=== PATIENT | male | born 1955 | race African-American/Black ===

== ENCOUNTER 2017-12-24 11:57 | Inpatient (IN) ==
[2017-12-25] MEDS ORDERED: DEXTROSE 50% 25 GM/50 ML VIAL IV PRN (10:10)
[2017-12-25] MEDS ORDERED: GLUCAGON 1 MG VIAL IM PRN (10:10)
[2017-12-25] MEDS ORDERED: MECLIZINE 25 MG TABLET PO PRN (10:18)
[2017-12-25] MEDS ORDERED: SODIUM CHLORIDE 0.9% 1,000 ML IV SCH (10:30)
[2017-12-25] MEDS ORDERED: SERTRALINE 100 MG TABLET PO SCH (21:00)
[2017-12-25] MEDS ORDERED: RANITIDINE 150 MG TABLET PO SCH (21:00)
[2017-12-25] MEDS ORDERED: NON-FORMULARY MEDICATION (Clonazepam [Clonazepam] 1 MG) PO SCH (21:00)
[2017-12-25] MEDS ORDERED: CHLORHEXIDINE 0.12% ORAL RINSE 60 ML BOTTLE SWISH/SPIT SCH (21:00)
[2017-12-25] MEDS ORDERED: QUETIAPINE FUMARATE 100 MG PO SCH (21:00)
[2017-12-26] MEDS ORDERED: ASPIRIN EC 325 MG TABLET PO SCH (09:00)
[2017-12-26] MEDS ORDERED: ATORVASTATIN 10 MG TABLET PO SCH (09:00)
[2017-12-26] MEDS ORDERED: GABAPENTIN 300 MG CAPSULE PO SCH (09:00)
[2017-12-26] MEDS ORDERED: DONEPEZIL 10 MG TABLET PO SCH (09:00)
[2017-12-29 10:52] LABS: Basophils % 0.4 % (0.0-0.8); Eosinophils # 0.2 10*3/uL (0.0-0.87); Eosinophils % 3.7 % (0.00-10.9); Hematocrit 36.5 VOL% (42.0-52.0); Hemoglobin 12.2 GM/DL (14.0-18.0); Immature Granulocytes % 0.4 %; Immature Granulocytes Absolute 0.02 #; Lymphocytes # 1.3 10*3/uL (1.4-4.0); Lymphocytes % 24.8 % (21.2-54.2); Mean Corpuscular HGB Conc 33.4 GM/DL (32-36); Mean Corpuscular Hemoglobin 27 PG (27-34); Mean Corpuscular Volume 81.3 FL (87-102); Mean Platelet Volume 10.4 FL (9.6-12.0); Monocytes # 0.4 10*3/uL (0.11-0.8); Monocytes % 8.4 % (1.7-12.7); Neutrophils # 3.2 10*3/uL (1.4-7.4); Neutrophils % 62.3 % (38.7-73.9); Platelet Count 264 T/CUMM (130-400); Red Blood Count 4.49 MC/CUMM (3.8-5.5); Red Cell Distribution Width 14.9 % (9.3-17.3); White Blood Count 5.1 T/CUMM (4-12)
[2017-12-29 11:12] LABS: ABG Base Excess 0.1 MMOL/L (-2.5-2.5); ABG HCO3 24.5 MMOL/L (20-26); ABG Oxygen Saturation 97.3 % (95-100); ABG PCO2 35.8 MM HG (35-48); ABG PH 7.433 (7.35-7.45); ABG PO2 87.6 MM HG (80-95); ABG TCO2 21.1 MMOL/L (23-27); Pt O2 Delivery Device Room Air
[2017-12-29 11:52] LABS: Albumin 3.7 G/DL (3.4-5.0); Bilirubin,Total 0.5 MG/DL (0.2-1.0); Osmolality,Calculated 281.7 MOS/KG (273-304); Potassium 4.4 MMOL/L (3.5-5.1); Total Protein 7.8 G/DL (6.4-8.3)
[2017-12-29] MEDS: CHLORHEXIDINE 0.12% ORAL RINSE 60 ML BOTTLE SWISH/SPIT SCH ×2 (14:57→20:09)
[2017-12-29] MEDS ORDERED: CHLORHEXIDINE 4% SOLN 118 ML BOTTLE TOP SCH (15:00)
[2017-12-29] MEDS: CHLORHEXIDINE 4% SOLN 118 ML BOTTLE TOP SCH ×2 (15:00→20:08)
[2017-12-29] MEDS ORDERED: MECLIZINE 25 MG TABLET PO PRN (15:00)
[2017-12-29] MEDS ORDERED: DEXTROSE 50% 25 GM/50 ML VIAL IV PRN (15:00)
[2017-12-29] MEDS ORDERED: GLUCAGON 1 MG VIAL IM PRN (15:00)
[2017-12-29] MEDS ORDERED: SODIUM CHLORIDE 0.9% 1,000 ML IV SCH (15:00)
[2017-12-29] MEDS: QUEtiapine 100 MG TABLET PO SCH (20:08)
[2017-12-29] MEDS ORDERED: clonazePAM 0.5 MG TABLET PO SCH (21:00)
[2017-12-29] MEDS ORDERED: SERTRALINE 100 MG TABLET PO SCH (21:00)
[2017-12-29] MEDS ORDERED: FAMOTIDINE 20 MG TABLET PO SCH (21:00)
[2017-12-30] MEDS ORDERED: LORazepam 1 MG TABLET PO ONE (05:00)
[2017-12-30] MEDS ORDERED: CEFUROXIME INJ 1,500 MG in SYRINGE 1 EACH IV ONE (05:00)
[2017-12-30] MEDS ORDERED: VANCOMYCIN 1,000 MG VIAL ONE (05:25)
[2017-12-30] MEDS ORDERED: PAPAVERINE 60 MG/2 ML VIAL ONE (05:25)
[2017-12-30] MEDS ORDERED: ePHEDrine 50 MG/ML AMP ONE (05:49)
[2017-12-30] MEDS ORDERED: HEPARIN/NACL 0.9% 2 UNITS/ML 500 ML IV ONE (05:49)
[2017-12-30] MEDS ORDERED: SUFentanil 250 MCG/5 ML AMP ONE (05:49)
[2017-12-30] MEDS ORDERED: MIDAZOLAM 10 MG/2 ML VIAL ONE (05:49)
[2017-12-30] MEDS ORDERED: SODIUM CHLORIDE 0.9% 250 ML IV ONE ×2 (05:50→05:51)
[2017-12-30] MEDS ORDERED: PHENYLEPHRINE DRIP 20 MG/250 ML PREMIX IV ONE (05:50)
[2017-12-30] MEDS ORDERED: SODIUM CHLORIDE 0.9% 1,000 ML IV ONE (05:50)
[2017-12-30] MEDS ORDERED: NITROGLYCERIN DRIP 50 MG/250 ML BOTTLE IV ONE (05:50)
[2017-12-30] MEDS ORDERED: SODIUM CHLORIDE 0.9% 100 ML IV ONE (05:50)
[2017-12-30] MEDS ORDERED: LACTATED RINGERS 1,000 ML IV ONE (05:50)
[2017-12-30] MEDS ORDERED: TRANEXAMIC ACID 1,000 MG/10 ML VIAL IV ONE (05:50)
[2017-12-30] MEDS ORDERED: VECURONIUM 10 MG VIAL IV ONE (05:50)
[2017-12-30] MEDS ORDERED: PHENYLEPHRINE 50 MG/5 ML VIAL ONE (05:51)
[2017-12-30] MEDS: FAMOTIDINE 20 MG TABLET PO SCH ×2 (06:26→10:02)
[2017-12-30 07:25] LABS: ABG Base Excess -2.3 MMOL/L (-2.5-2.5); ABG HCO3 22.5 MMOL/L (20-26); ABG PCO2 38.1 MM HG (35-48); ABG PH 7.379 (7.35-7.45); ABG TCO2 20.2 MMOL/L (23-27); Glucose Heart Surgery 144 MG/DL (74-106); Hematocrit Heart Surgery 33.5 PERCENT (42-52); Hemoglobin Heart Surgery 10.8 G/DL (14.0-18.0); Ionized Calcium Arterial 1.16 MMOL/L (1.21-1.46); PCO2 Patient Temp Arterial 38.1 MMHG; PH Patient Temp Arterial 7.379; Patient Temperature 37 CELCIUS; Potassium Heart/CVR 4.3 MMOL/L (3.5-5.1); Sodium Heart/CVR 141 MMOL/L (135-145)
[2017-12-30] MEDS ORDERED: POTASSIUM CHLORIDE RIDER 100 ML IV ONE (07:38)
[2017-12-30] MEDS ORDERED: PHENYLEPHRINE DRIP 40 MG/250 ML PREMIX IV ONE (07:38)
[2017-12-30] MEDS ORDERED: NITROPRUSSIDE 50 MG/2 ML VIAL ONE (07:38)
[2017-12-30] MEDS ORDERED: ALBUMIN 5% 12.5 GM/250 ML VIAL IV ONE (07:38)
[2017-12-30 08:04] LABS: Apearance,Urine CLEAR (Clear); Bilirubin,Urine Negative (Negative); Blood, Urine Negative (Negative); Glucose,Urine (UA) Negative (Negative); Ketones,Urine Negative (Negative); Nitrite,Urine Negative (Negative); Protein,Urine Negative; RBC,Urine <1 /HPF (0-4); Urine Color Yellow (Yellow); Urine Specific Gravity 1.011 (1.001-1.035); Urine Urobilinogen < 2.0 EU/DL (0.2-1.0)
[2017-12-30] MEDS ORDERED: CALCIUM CHLORIDE 1,000 MG/10 ML SYRINGE IV ONE (08:33)
[2017-12-30 09:00] LABS: Hematocrit Heart Surgery 21.5 PERCENT (42-52); Hemoglobin Heart Surgery 6.9 G/DL (14.0-18.0); PCO2 Patient Temp Venous 34.1 MM HG; PH Patient Temp Venous 7.438; PO2 Patient Temp Venous 41.9 MM HG; Potassium Heart/CVR 4.9 MMOL/L (3.5-5.1); VBG Base Excess -0.6 MEQ/L (0-4); VBG HCO3 23.8 MEQ/L (24-28); VBG Oxygen Saturation 86.4 %; VBG PCO2 39.4 MMHG (41-51); VBG PH 7.395; VBG PO2 51.4 MMHG (17-40)
[2017-12-30] MEDS ORDERED: ATORVASTATIN 10 MG TABLET PO SCH (09:00)
[2017-12-30] MEDS ORDERED: ASPIRIN EC 325 MG TABLET PO SCH (09:00)
[2017-12-30] MEDS ORDERED: GABAPENTIN 300 MG CAPSULE PO SCH (09:00)
[2017-12-30] MEDS ORDERED: DONEPEZIL 10 MG TABLET PO SCH (09:00)
[2017-12-30 09:32] LABS: Hematocrit Heart Surgery 22.5 PERCENT (42-52); Hemoglobin Heart Surgery 7.2 G/DL (14.0-18.0); PCO2 Patient Temp Venous 33.9 MM HG; PH Patient Temp Venous 7.446; PO2 Patient Temp Venous 42.5 MM HG; Potassium Heart/CVR 5.1 MMOL/L (3.5-5.1); VBG Base Excess -0.5 MEQ/L (0-4); VBG HCO3 23.8 MEQ/L (24-28); VBG Oxygen Saturation 80.5 %; VBG PCO2 33.9 MMHG (41-51); VBG PH 7.446; VBG PO2 42.5 MMHG (17-40)
[2017-12-30] MEDS: CHLORHEXIDINE 4% SOLN 118 ML BOTTLE TOP SCH (10:01)
[2017-12-30] MEDS: CHLORHEXIDINE 0.12% ORAL RINSE 60 ML BOTTLE SWISH/SPIT SCH ×2 (10:02→20:30)
[2017-12-30] MEDS: QUEtiapine 100 MG TABLET PO SCH (10:03)
[2017-12-30 10:05] LABS: ABG Base Excess -1.3 MMOL/L (-2.5-2.5); ABG HCO3 23.3 MMOL/L (20-26); ABG PCO2 28.3 MM HG (35-48); ABG PH 7.488 (7.35-7.45); ABG TCO2 20.1 MMOL/L (23-27); Glucose Heart Surgery 253 MG/DL (74-106); Hematocrit Heart Surgery 23.9 PERCENT (42-52); Hemoglobin Heart Surgery 7.7 G/DL (14.0-18.0); Ionized Calcium Arterial 1.04 MMOL/L (1.21-1.46); PCO2 Patient Temp Arterial 28.3 MMHG; PH Patient Temp Arterial 7.488; Patient Temperature 37 CELCIUS; Potassium Heart/CVR 4.4 MMOL/L (3.5-5.1); Sodium Heart/CVR 135 MMOL/L (135-145)
[2017-12-30] MEDS ORDERED: HEPARIN 10,000 UNIT/10 ML VIAL ONE (10:12)
[2017-12-30] MEDS ORDERED: DEXTROSE 5% KCL 20 MEQ 20 MEQ/1,000 ML BAG IV ONE (10:12)
[2017-12-30] MEDS ORDERED: PROTAMINE SULFATE 250 MG/25 ML VIAL IV ONE (10:12)
[2017-12-30] MEDS ORDERED: FUROSEMIDE 20 MG/2 ML VIAL ONE (10:12)
[2017-12-30] MEDS ORDERED: SODIUM BICARBONATE 50 MEQ/50 ML SYRINGE IV ONE (10:12)
[2017-12-30] MEDS ORDERED: methylPREDNISolone SOD SUC 1,000 MG/8 ML VIAL ONE (10:12)
[2017-12-30] MEDS ORDERED: ALBUMIN 25% 25 GM/100 ML VIAL IV ONE (10:12)
[2017-12-30] MEDS ORDERED: MAGNESIUM SULFATE 1 GM/2 ML VIAL ONE (10:12)
[2017-12-30] MEDS ORDERED: MANNITOL 12.5 GM/50 ML VIAL IV ONE (10:12)
[2017-12-30] MEDS ORDERED: PROTAMINE SULFATE 50 MG/5 ML VIAL IV ONE ×3 (10:13→11:00)
[2017-12-30] MEDS ORDERED: NITROPRUSSIDE 100 MG in DEXTROSE 5% 250 ML IV PRN (10:59)
[2017-12-30] MEDS ORDERED: VECURONIUM 10 MG VIAL IV PRN ×2 (10:59)
[2017-12-30] MEDS ORDERED: MORPHINE 2 MG/1 ML SYRINGE IV PRN (10:59)
[2017-12-30] MEDS ORDERED: PHENYLEPHRINE DRIP 40 MG/250 ML PREMIX IV PRN (10:59)
[2017-12-30] MEDS ORDERED: MAGNESIUM SULF RIDER 2 GM in PREMIX 1 EACH IV PRN (10:59)
[2017-12-30] MEDS ORDERED: MAGNESIUM SULF RIDER 4 GM in PREMIX 1 EACH IV PRN (10:59)
[2017-12-30] MEDS ORDERED: ONDANSETRON 4 MG/2 ML VIAL IV PRN (10:59)
[2017-12-30] MEDS ORDERED: INSULIN REGULAR 100 UNIT/ML IV PRN (10:59)
[2017-12-30] MEDS ORDERED: CALCIUM CHLORIDE 1,000 MG/10 ML SYRINGE IV PRN (10:59)
[2017-12-30] MEDS ORDERED: MIDAZOLAM 2 MG/2 ML VIAL IV PRN (10:59)
[2017-12-30] MEDS ORDERED: ACETAMINOPHEN 650 MG SUPP RECTAL PRN (10:59)
[2017-12-30] MEDS ORDERED: DEXTROSE 50% 25 GM/50 ML VIAL IV PRN ×2 (10:59)
[2017-12-30] MEDS ORDERED: POTASSIUM CHLORIDE RIDER 10 MEQ in PREMIX 1 EACH IV PRN (10:59)
[2017-12-30] MEDS ORDERED: INSULIN REGULAR 100 UNIT/ML IV ONE (10:59)
[2017-12-30] MEDS ORDERED: SEVOFLURANE 1 UNIT/15 MINUTE INH ONE (11:00)
[2017-12-30] MEDS ORDERED: KETOROLAC 30 MG/1 ML VIAL IV SCH (11:00)
[2017-12-30] MEDS ORDERED: SODIUM CHLORIDE 0.45% 1,000 ML IV SCH ×2 (11:00)
[2017-12-30] MEDS ORDERED: CALCIUM CHLORIDE 1,000 MG/10 ML VIAL IV ONE (11:00)
[2017-12-30 11:08] LABS: ABG Base Excess -0.5 MMOL/L (-2.5-2.5); ABG Oxygen Saturation 97.7 % (95-100); ABG PCO2 32.6 MM HG (35-48); ABG PH 7.455 (7.35-7.45); ABG PO2 86.5 MM HG (80-95); ABG TCO2 21.1 MMOL/L (23-27); Glucose Heart Surgery 234 MG/DL (74-106); Hematocrit Heart Surgery 27.5 PERCENT (42-52); Hemoglobin Heart Surgery 8.9 G/DL (14.0-18.0)
[2017-12-30 11:13] LABS: Basophils % 0.1 % (0.0-0.8); Eosinophils # 0.1 10*3/uL (0.0-0.87); Eosinophils % 1.2 % (0.00-10.9); Hematocrit 25.5 VOL% (42.0-52.0); Hemoglobin 8.6 GM/DL (14.0-18.0); Immature Granulocytes % 0.7 %; Immature Granulocytes Absolute 0.05 #; Lymphocytes # 0.8 10*3/uL (1.4-4.0); Lymphocytes % 11.5 % (21.2-54.2); Mean Corpuscular HGB Conc 33.7 GM/DL (32-36); Mean Corpuscular Hemoglobin 27 PG (27-34); Mean Corpuscular Volume 81.2 FL (87-102); Mean Platelet Volume 10.1 FL (9.6-12.0); Monocytes # 0.3 10*3/uL (0.11-0.8); Monocytes % 4.3 % (1.7-12.7); Neutrophils # 5.7 10*3/uL (1.4-7.4); Neutrophils % 82.2 % (38.7-73.9); Platelet Count 166 T/CUMM (130-400); Red Blood Count 3.14 MC/CUMM (3.8-5.5); Red Cell Distribution Width 15.2 % (9.3-17.3); White Blood Count 6.9 T/CUMM (4-12)
[2017-12-30 11:21] LABS: INR 1.2; PT Patient Result 12.4 SECS; Partial Thromboplastin Time 33.2 SECS (0-40)
[2017-12-30] MEDS: LACTATED RINGERS 1,000 ML IV PRN ×4 (12:00→18:46)
[2017-12-30] MEDS: INSULIN REGULAR DRIP 100 ML IV SCH (12:01)
[2017-12-30 12:09] LABS: Albumin 3.5 G/DL (3.4-5.0); Bilirubin,Total 0.7 MG/DL (0.2-1.0); Calcium 8.2 MG/DL (8.5-10.1); Magnesium 2.3 MG/DL (1.8-2.4); Osmolality,Calculated 286.5 MOS/KG (273-304); Potassium 4.1 MMOL/L (3.5-5.1); Total Protein 6.3 G/DL (6.4-8.3)
[2017-12-30] MEDS: POTASSIUM CHLORIDE RIDER 20 MEQ in PREMIX 1 EACH IV PRN ×6 (12:10→23:23)
[2017-12-30 12:22] LABS: CKMB % 5.6 %
[2017-12-30 12:24] LABS: Troponin I Only 1.84 NG/ML (0.00-0.045)
[2017-12-30] MEDS: MIDAZOLAM 10 MG/2 ML VIAL IV PRN ×2 (12:40→15:49)
[2017-12-30 13:03] LABS: ABG Base Excess -2.1 MMOL/L (-2.5-2.5); ABG HCO3 22.6 MMOL/L (20-26); ABG Oxygen Saturation 98.8 % (95-100); ABG PCO2 36.3 MM HG (35-48); ABG PH 7.396 (7.35-7.45); ABG TCO2 20.3 MMOL/L (23-27); Glucose Heart Surgery 217 MG/DL (74-106); Hematocrit Heart Surgery 30.9 PERCENT (42-52); Potassium Heart/CVR 3.8 MMOL/L (3.5-5.1)
[2017-12-30] MEDS: ALBUMIN 5% 12.5 GM in PREMIX 1 EACH IV PRN ×4 (13:08→17:15)
[2017-12-30 13:12] LABS: Hypochromasia 2+
[2017-12-30 14:06] LABS: ABG Base Excess -2.1 MMOL/L (-2.5-2.5); ABG HCO3 22.7 MMOL/L (20-26); ABG Oxygen Saturation 98.9 % (95-100); ABG PCO2 37.3 MM HG (35-48); ABG PH 7.389 (7.35-7.45); ABG TCO2 20.3 MMOL/L (23-27); Glucose Heart Surgery 196 MG/DL (74-106); Hematocrit Heart Surgery 32.4 PERCENT (42-52); Hemoglobin Heart Surgery 10.5 G/DL (14.0-18.0)
[2017-12-30] MEDS ORDERED: PROPOFOL 1,000 MG/100 ML BOTTLE IV SCH (16:00)
[2017-12-30 17:10] LABS: ABG Base Excess -2.9 MMOL/L (-2.5-2.5); ABG HCO3 21.1 MMOL/L (20-26); ABG Oxygen Saturation 95.1 % (95-100); ABG PCO2 33.5 MM HG (35-48); ABG PH 7.417 (7.35-7.45); ABG PO2 79.8 MM HG (80-95); ABG TCO2 22.1 MMOL/L (23-27); Glucose Heart Surgery 141 MG/DL (74-106); Hemoglobin Heart Surgery 10.1 G/DL (14.0-18.0)
[2017-12-30 18:09] LABS: ABG Base Excess -2.8 MMOL/L (-2.5-2.5); ABG HCO3 22.1 MMOL/L (20-26); ABG PCO2 36.1 MM HG (35-48); ABG PH 7.388 (7.35-7.45); Glucose Heart Surgery 138 MG/DL (74-106); Hematocrit Heart Surgery 29.1 PERCENT (42-52); Hemoglobin Heart Surgery 9.4 G/DL (14.0-18.0); Potassium Heart/CVR 4.3 MMOL/L (3.5-5.1)
[2017-12-30] MEDS: CEFUROXIME INJ 1,500 MG in SYRINGE 1 EACH IV SCH (18:22)
[2017-12-30 18:34] LABS: ABG Base Excess -2.7 MMOL/L (-2.5-2.5); ABG HCO3 22.1 MMOL/L (20-26); ABG Oxygen Saturation 96.5 % (95-100); ABG PCO2 35.8 MM HG (35-48); ABG PH 7.392 (7.35-7.45); ABG PO2 78.3 MM HG (80-95); Glucose Heart Surgery 129 MG/DL (74-106); Hematocrit Heart Surgery 28.1 PERCENT (42-52); Potassium Heart/CVR 4.3 MMOL/L (3.5-5.1)
[2017-12-30] MEDS: MORPHINE 10 MG/1 ML VIAL IV PRN ×2 (19:29→20:57)
[2017-12-30 20:16] LABS: ABG Base Excess -5.2 MMOL/L (-2.5-2.5); ABG HCO3 20.1 MMOL/L (20-26); ABG Oxygen Saturation 94.1 % (95-100); ABG PCO2 38.3 MM HG (35-48); ABG PH 7.332 (7.35-7.45); ABG PO2 72.2 MM HG (80-95); ABG TCO2 18.8 MMOL/L (23-27); Glucose Heart Surgery 120 MG/DL (74-106); Hematocrit Heart Surgery 27.6 PERCENT (42-52); Hemoglobin Heart Surgery 8.9 G/DL (14.0-18.0); Potassium Heart/CVR 4.3 MMOL/L (3.5-5.1)
[2017-12-30] MEDS: METOPROLOL TARTRATE 25 MG TABLET PO SCH (20:29)
[2017-12-30 21:21] LABS: CKMB % 4.3 %
[2017-12-30 21:23] LABS: Troponin I Only 2.79 NG/ML (0.00-0.045)
[2017-12-30] MEDS: LACTATED RINGERS 250 ML IV PRN ×2 (22:00→22:30)
[2017-12-30 23:16] LABS: ABG Base Excess -3.6 MMOL/L (-2.5-2.5); ABG HCO3 21.4 MMOL/L (20-26); ABG Oxygen Saturation 95.4 % (95-100); ABG PCO2 39.2 MM HG (35-48); ABG PO2 76.1 MM HG (80-95); ABG TCO2 19.5 MMOL/L (23-27); Glucose Heart Surgery 112 MG/DL (74-106); Hematocrit Heart Surgery 34.8 PERCENT (42-52); Hemoglobin Heart Surgery 11.3 G/DL (14.0-18.0); Potassium Heart/CVR 4.4 MMOL/L (3.5-5.1)
[2017-12-30 23:54] LABS: ABG Base Excess -4.1 MMOL/L (-2.5-2.5); ABG HCO3 20.9 MMOL/L (20-26); ABG Oxygen Saturation 91.6 % (95-100); ABG PH 7.351 (7.35-7.45); ABG PO2 63.1 MM HG (80-95); Glucose Heart Surgery 126 MG/DL (74-106); Hematocrit Heart Surgery 33.4 PERCENT (42-52); Hemoglobin Heart Surgery 10.8 G/DL (14.0-18.0); Potassium Heart/CVR 5.2 MMOL/L (3.5-5.1)
[2017-12-31 00:26] LABS: ABG Oxygen Saturation 92.3 % (95-100); ABG PCO2 38.5 MM HG (35-48); ABG PH 7.349 (7.35-7.45); ABG PO2 64.2 MM HG (80-95); ABG TCO2 19.2 MMOL/L (23-27); Glucose Heart Surgery 138 MG/DL (74-106); Hematocrit Heart Surgery 33.5 PERCENT (42-52); Hemoglobin Heart Surgery 10.9 G/DL (14.0-18.0); Potassium Heart/CVR 4.6 MMOL/L (3.5-5.1)
[2017-12-31] MEDS: MORPHINE 10 MG/1 ML VIAL IV PRN ×2 (00:51→06:15)
[2017-12-31] MEDS: INSULIN REGULAR DRIP 100 ML IV SCH (02:54)
[2017-12-31 03:15] LABS: ABG Base Excess -2.8 MMOL/L (-2.5-2.5); ABG HCO3 22.1 MMOL/L (20-26); ABG Oxygen Saturation 96.4 % (95-100); ABG PCO2 40.1 MM HG (35-48); ABG PH 7.356 (7.35-7.45); ABG PO2 82.2 MM HG (80-95); ABG TCO2 20.3 MMOL/L (23-27); Glucose Heart Surgery 131 MG/DL (74-106); Potassium Heart/CVR 4.7 MMOL/L (3.5-5.1)
[2017-12-31 03:49] LABS: ABG Base Excess -3.8 MMOL/L (-2.5-2.5); ABG HCO3 21.2 MMOL/L (20-26); ABG Oxygen Saturation 93.9 % (95-100); ABG PCO2 37.7 MM HG (35-48); ABG PH 7.358 (7.35-7.45); ABG PO2 68.3 MM HG (80-95); ABG TCO2 19.1 MMOL/L (23-27); Glucose Heart Surgery 124 MG/DL (74-106); Hematocrit Heart Surgery 33.8 PERCENT (42-52); Hemoglobin Heart Surgery 10.9 G/DL (14.0-18.0); Potassium Heart/CVR 4.5 MMOL/L (3.5-5.1)
[2017-12-31 04:19] LABS: Basophils % 0.1 % (0.0-0.8); Hematocrit 31.8 VOL% (42.0-52.0); Hemoglobin 10.8 GM/DL (14.0-18.0); Immature Granulocytes % 0.7 %; Immature Granulocytes Absolute 0.08 #; Lymphocytes # 0.7 10*3/uL (1.4-4.0); Lymphocytes % 5.7 % (21.2-54.2); Mean Corpuscular Hemoglobin 28 PG (27-34); Mean Corpuscular Volume 82.6 FL (87-102); Mean Platelet Volume 10.2 FL (9.6-12.0); Monocytes # 0.7 10*3/uL (0.11-0.8); Monocytes % 5.9 % (1.7-12.7); Neutrophils # 10.7 10*3/uL (1.4-7.4); Neutrophils % 87.6 % (38.7-73.9); Platelet Count 186 T/CUMM (130-400); Red Blood Count 3.85 MC/CUMM (3.8-5.5); Red Cell Distribution Width 15.4 % (9.3-17.3); White Blood Count 12.2 T/CUMM (4-12)
[2017-12-31 04:45] LABS: Alanine Aminotransferase 19 U/L (16-61); Albumin 3.9 G/DL (3.4-5.0); Alkaline Phosphatase 51 U/L (45-117); Aspartate Amino Transferase 31 U/L (0-37); Bilirubin,Direct < 0.100 MG/DL (0.0-0.20); Blood Urea Nitrogen 12 MG/DL (7-18); CKMB % 4.2 %; Calcium 7.5 MG/DL (8.5-10.1); Glucose 115 MG/DL (74-106); Magnesium 1.8 MG/DL (1.8-2.4); Osmolality,Calculated 283.1 MOS/KG (273-304); Potassium 4.6 MMOL/L (3.5-5.1); Sodium 142 MMOL/L (136-145); Total Protein 6.3 G/DL (6.4-8.3)
[2017-12-31 04:50] LABS: Troponin I Only 5.12 NG/ML (0.00-0.045)
[2017-12-31 04:57] LABS: Elliptocytes Few; Hypochromasia 1+; Platelet Estimate Normal
[2017-12-31 04:58] LABS: Giant Platelets Few
[2017-12-31] MEDS ORDERED: MECLIZINE 25 MG TABLET PO PRN (06:27)
[2017-12-31] MEDS: CEFUROXIME INJ 1,500 MG in SYRINGE 1 EACH IV SCH (06:42)
[2017-12-31] MEDS: DONEPEZIL 10 MG TABLET PO SCH (08:04)
[2017-12-31] MEDS: FAMOTIDINE 20 MG TABLET PO SCH ×2 (08:04→21:24)
[2017-12-31] MEDS: GABAPENTIN 300 MG CAPSULE PO SCH (08:04)
[2017-12-31] MEDS: QUEtiapine 100 MG TABLET PO SCH ×2 (08:05→21:24)
[2017-12-31] MEDS: ATORVASTATIN 10 MG TABLET PO SCH (08:06)
[2017-12-31] MEDS: METOPROLOL TARTRATE 25 MG TABLET PO SCH ×2 (08:06→21:24)
[2017-12-31] MEDS: CHLORHEXIDINE 0.12% ORAL RINSE 60 ML BOTTLE SWISH/SPIT SCH ×3 (08:07→22:25)
[2017-12-31] MEDS: INSULIN REGULAR 100 UNIT/ML SUBCUT SCH ×4 (08:08→21:44)
[2017-12-31] MEDS ORDERED: DEXTROSE 50% 25 GM/50 ML VIAL IV PRN ×2 (10:10)
[2017-12-31] MEDS ORDERED: MAGNESIUM SULF RIDER 4 GM in PREMIX 1 EACH IV PRN (10:10)
[2017-12-31] MEDS ORDERED: MAGNESIUM SULF RIDER 2 GM in PREMIX 1 EACH IV PRN (10:10)
[2017-12-31] MEDS ORDERED: GLUCAGON 1 MG VIAL IM PRN ×2 (10:10)
[2017-12-31] MEDS ORDERED: KETOROLAC 30 MG/1 ML VIAL IV PRN (10:30)
[2017-12-31] MEDS ORDERED: MAGNESIUM HYDROXIDE SUSP 30 ML UDCUP PO PRN (10:30)
[2017-12-31] MEDS ORDERED: ALUMINUM/MAGNES/SIMETH MAX STR 30 ML UDCUP PO PRN (10:30)
[2017-12-31] MEDS ORDERED: MORPHINE 2 MG/1 ML SYRINGE IV PRN (10:30)
[2017-12-31] MEDS ORDERED: ACETAMINOPHEN 325 MG TABLET PO PRN (10:30)
[2017-12-31] MEDS ORDERED: POTASSIUM CHLORIDE 20 MEQ TABLET PO PRN (10:45)
[2017-12-31] MEDS ORDERED: ONDANSETRON 4 MG/2 ML VIAL IV PRN (10:45)
[2017-12-31] MEDS ORDERED: oxyCODONE/ACETAMINOPHEN 5-325 MG TABLET PO PRN (10:45)
[2017-12-31] MEDS ORDERED: SODIUM CHLOR 0.45% KCL 20 MEQ 20 MEQ/1,000 ML BAG IV SCH (11:00)
[2017-12-31] MEDS: DOCUSATE SODIUM 100 MG CAPSULE PO SCH (11:32)
[2017-12-31] MEDS: ASPIRIN EC 325 MG TABLET PO SCH (11:32)
[2017-12-31] MEDS: PANTOPRAZOLE 40 MG TABLET PO SCH (11:32)
[2017-12-31] MEDS: FERROUS SULFATE 325 MG TABLET PO SCH (11:32)
[2017-12-31] MEDS: CLORAZEPATE 7.5 MG TABLET PO PRN ×2 (12:17→21:24)
[2017-12-31] MEDS ORDERED: ZALEPLON 5 MG CAPSULE PO PRN (21:00)
[2017-12-31] MEDS: SERTRALINE 100 MG TABLET PO SCH (21:23)
[2018-01-01] MEDS: INSULIN REGULAR 100 UNIT/ML SUBCUT SCH ×6 (03:05→23:45)
[2018-01-01 05:22] LABS: Basophils % 0.1 % (0.0-0.8); Hematocrit 32.3 VOL% (42.0-52.0); Hemoglobin 10.8 GM/DL (14.0-18.0); Immature Granulocytes % 0.5 %; Immature Granulocytes Absolute 0.06 #; Lymphocytes # 0.9 10*3/uL (1.4-4.0); Lymphocytes % 7.4 % (21.2-54.2); Mean Corpuscular HGB Conc 33.4 GM/DL (32-36); Mean Corpuscular Hemoglobin 28 PG (27-34); Mean Corpuscular Volume 83.2 FL (87-102); Mean Platelet Volume 10.6 FL (9.6-12.0); Monocytes # 0.9 10*3/uL (0.11-0.8); Monocytes % 7.9 % (1.7-12.7); Neutrophils % 84.1 % (38.7-73.9); Platelet Count 156 T/CUMM (130-400); Red Blood Count 3.88 MC/CUMM (3.8-5.5); Red Cell Distribution Width 15.9 % (9.3-17.3); White Blood Count 11.8 T/CUMM (4-12)
[2018-01-01 05:57] LABS: Lymphocytes 7 % (20-55); Segmented Neutrophils 87 % (50-85); Total Cells Counted 100
[2018-01-01 05:58] LABS: Giant Platelets Few; Hypochromasia 1+; Ovalocytes Slight; Platelet Estimate Normal
[2018-01-01 05:59] LABS: Albumin 3.7 G/DL (3.4-5.0); Bilirubin,Direct 0.17 MG/DL (0.0-0.20); Bilirubin,Indirect 0.7 MG/DL (0.0-1.0); Bilirubin,Total 0.9 MG/DL (0.2-1.0); CKMB % 0.8 %; Calcium 8.1 MG/DL (8.5-10.1); Magnesium 2.3 MG/DL (1.8-2.4); Osmolality,Calculated 280.7 MOS/KG (273-304); Potassium 4.7 MMOL/L (3.5-5.1); Total Protein 6.6 G/DL (6.4-8.3)
[2018-01-01] MEDS ORDERED: FUROSEMIDE 40 MG/4 ML VIAL IV ONE (06:00)
[2018-01-01] MEDS: LEVOTHYROXINE 50 MCG TABLET PO SCH (06:13)
[2018-01-01 06:18] LABS: Troponin I Only 2.58 NG/ML (0.00-0.045)
[2018-01-01] MEDS: FERROUS SULFATE 325 MG TABLET PO SCH (09:01)
[2018-01-01] MEDS: DONEPEZIL 10 MG TABLET PO SCH (09:01)
[2018-01-01] MEDS: ASPIRIN EC 325 MG TABLET PO SCH (09:01)
[2018-01-01] MEDS: DOCUSATE SODIUM 100 MG CAPSULE PO SCH (09:02)
[2018-01-01] MEDS: PANTOPRAZOLE 40 MG TABLET PO SCH (09:02)
[2018-01-01] MEDS: GABAPENTIN 300 MG CAPSULE PO SCH (09:02)
[2018-01-01] MEDS: ATORVASTATIN 10 MG TABLET PO SCH (09:02)
[2018-01-01] MEDS: CHLORHEXIDINE 0.12% ORAL RINSE 60 ML BOTTLE SWISH/SPIT SCH ×2 (09:02→23:45)
[2018-01-01] MEDS: QUEtiapine 100 MG TABLET PO SCH ×2 (09:02→23:45)
[2018-01-01] MEDS: FAMOTIDINE 20 MG TABLET PO SCH ×2 (09:02→23:45)
[2018-01-01] MEDS: METOPROLOL TARTRATE 25 MG TABLET PO SCH ×2 (09:02→23:45)
[2018-01-01] MEDS: CLORAZEPATE 7.5 MG TABLET PO PRN (23:45)
[2018-01-01] MEDS: SERTRALINE 100 MG TABLET PO SCH (23:45)
[2018-01-02] MEDS: INSULIN REGULAR 100 UNIT/ML SUBCUT SCH ×6 (02:04→21:48)
[2018-01-02 05:52] LABS: Eosinophils # 0.2 10*3/uL (0.0-0.87); Eosinophils % 1.8 % (0.00-10.9); Hematocrit 35.4 VOL% (42.0-52.0); Hemoglobin 11.8 GM/DL (14.0-18.0); Immature Granulocytes % 0.4 %; Immature Granulocytes Absolute 0.04 #; Lymphocytes # 1.5 10*3/uL (1.4-4.0); Lymphocytes % 15.8 % (21.2-54.2); Mean Corpuscular HGB Conc 33.3 GM/DL (32-36); Mean Corpuscular Hemoglobin 28 PG (27-34); Mean Corpuscular Volume 83.9 FL (87-102); Monocytes % 10.3 % (1.7-12.7); Neutrophils # 6.8 10*3/uL (1.4-7.4); Neutrophils % 71.7 % (38.7-73.9); Platelet Count 168 T/CUMM (130-400); Red Blood Count 4.22 MC/CUMM (3.8-5.5); Red Cell Distribution Width 15.9 % (9.3-17.3); White Blood Count 9.5 T/CUMM (4-12)
[2018-01-02 06:29] LABS: Alanine Aminotransferase 23 U/L (16-61); Albumin 3.6 G/DL (3.4-5.0); Alkaline Phosphatase 62 U/L (45-117); Aspartate Amino Transferase 26 U/L (0-37); Bilirubin,Indirect 0.6 MG/DL (0.0-1.0); Blood Urea Nitrogen 29 MG/DL (7-18); Calcium 8.4 MG/DL (8.5-10.1); Glucose 134 MG/DL (74-106); Magnesium 2.3 MG/DL (1.8-2.4); Osmolality,Calculated 288.3 MOS/KG (273-304); Potassium 4.1 MMOL/L (3.5-5.1); Sodium 141 MMOL/L (136-145); Total Protein 7.2 G/DL (6.4-8.3)
[2018-01-02] MEDS: DONEPEZIL 10 MG TABLET PO SCH (09:18)
[2018-01-02] MEDS: FERROUS SULFATE 325 MG TABLET PO SCH (09:18)
[2018-01-02] MEDS: FAMOTIDINE 20 MG TABLET PO SCH ×2 (09:18→21:47)
[2018-01-02] MEDS: QUEtiapine 100 MG TABLET PO SCH ×2 (09:18→21:47)
[2018-01-02] MEDS: ATORVASTATIN 10 MG TABLET PO SCH (09:19)
[2018-01-02] MEDS: PANTOPRAZOLE 40 MG TABLET PO SCH (09:20)
[2018-01-02] MEDS: DOCUSATE SODIUM 100 MG CAPSULE PO SCH (09:20)
[2018-01-02] MEDS: LEVOTHYROXINE 50 MCG TABLET PO SCH (09:20)
[2018-01-02] MEDS: GABAPENTIN 300 MG CAPSULE PO SCH (09:20)
[2018-01-02] MEDS: CHLORHEXIDINE 0.12% ORAL RINSE 60 ML BOTTLE SWISH/SPIT SCH ×2 (09:20→21:48)
[2018-01-02] MEDS: METOPROLOL TARTRATE 25 MG TABLET PO SCH ×2 (09:20→21:48)
[2018-01-02] MEDS: ASPIRIN EC 325 MG TABLET PO SCH (09:20)
[2018-01-02] MEDS ORDERED: guaiFENesin 200 MG/10 ML UDCUP PO PRN (16:01)
[2018-01-02] MEDS: SERTRALINE 100 MG TABLET PO SCH (21:47)
[2018-01-02] MEDS: CLORAZEPATE 7.5 MG TABLET PO PRN (21:47)
[2018-01-03] MEDS: INSULIN REGULAR 100 UNIT/ML SUBCUT SCH ×7 (01:05→23:30)
[2018-01-03] MEDS: DOCUSATE SODIUM 100 MG CAPSULE PO SCH (09:20)
[2018-01-03] MEDS: ATORVASTATIN 10 MG TABLET PO SCH (09:20)
[2018-01-03] MEDS: GABAPENTIN 300 MG CAPSULE PO SCH (09:20)
[2018-01-03] MEDS: DONEPEZIL 10 MG TABLET PO SCH (09:20)
[2018-01-03] MEDS: FAMOTIDINE 20 MG TABLET PO SCH (09:20)
[2018-01-03] MEDS: ASPIRIN EC 325 MG TABLET PO SCH (09:20)
[2018-01-03] MEDS: QUEtiapine 100 MG TABLET PO SCH (09:20)
[2018-01-03] MEDS: METOPROLOL TARTRATE 25 MG TABLET PO SCH (09:20)
[2018-01-03] MEDS: FERROUS SULFATE 325 MG TABLET PO SCH (09:20)
[2018-01-03] MEDS: LEVOTHYROXINE 50 MCG TABLET PO SCH (09:21)
[2018-01-03] MEDS: PANTOPRAZOLE 40 MG TABLET PO SCH (09:21)
[2018-01-03] MEDS: CHLORHEXIDINE 0.12% ORAL RINSE 60 ML BOTTLE SWISH/SPIT SCH (09:21)
[2018-01-04] MEDS: CHLORHEXIDINE 0.12% ORAL RINSE 60 ML BOTTLE SWISH/SPIT SCH (00:14)
[2018-01-04] MEDS: METOPROLOL TARTRATE 25 MG TABLET PO SCH ×2 (00:14→08:57)
[2018-01-04] MEDS: QUEtiapine 100 MG TABLET PO SCH ×2 (00:14→08:57)
[2018-01-04] MEDS: SERTRALINE 100 MG TABLET PO SCH (00:14)
[2018-01-04] MEDS: FAMOTIDINE 20 MG TABLET PO SCH ×2 (00:14→08:57)
[2018-01-04 06:50] LABS: Basophils % 0.3 % (0.0-0.8); Eosinophils # 0.4 10*3/uL (0.0-0.87); Eosinophils % 4.1 % (0.00-10.9); Hematocrit 34.7 VOL% (42.0-52.0); Hemoglobin 11.9 GM/DL (14.0-18.0); Immature Granulocytes % 0.6 %; Immature Granulocytes Absolute 0.05 #; Lymphocytes # 1.2 10*3/uL (1.4-4.0); Mean Corpuscular HGB Conc 34.3 GM/DL (32-36); Mean Corpuscular Hemoglobin 28 PG (27-34); Mean Platelet Volume 10.6 FL (9.6-12.0); Monocytes # 0.7 10*3/uL (0.11-0.8); Monocytes % 8.3 % (1.7-12.7); Neutrophils # 6.3 10*3/uL (1.4-7.4); Neutrophils % 72.7 % (38.7-73.9); Platelet Count 213 T/CUMM (130-400); Red Blood Count 4.23 MC/CUMM (3.8-5.5); Red Cell Distribution Width 15.6 % (9.3-17.3); White Blood Count 8.7 T/CUMM (4-12)
[2018-01-04] MEDS: LEVOTHYROXINE 50 MCG TABLET PO SCH (07:09)
[2018-01-04 07:29] LABS: Alanine Aminotransferase 22 U/L (16-61); Albumin 3.1 G/DL (3.4-5.0); Alkaline Phosphatase 61 U/L (45-117); Aspartate Amino Transferase 17 U/L (0-37); Bilirubin,Indirect 0.5 MG/DL (0.0-1.0); Blood Urea Nitrogen 18 MG/DL (7-18); Calcium 7.9 MG/DL (8.5-10.1); Glucose 130 MG/DL (74-106); Osmolality,Calculated 280.5 MOS/KG (273-304); Sodium 139 MMOL/L (136-145); Total Protein 6.5 G/DL (6.4-8.3)
[2018-01-04 07:30] LABS: Troponin I Only 0.304 NG/ML (0.00-0.045)
[2018-01-04 08:47] VITALS: BP 128/83
[2018-01-04] MEDS: INSULIN REGULAR 100 UNIT/ML SUBCUT SCH (08:55)
[2018-01-04] MEDS: DONEPEZIL 10 MG TABLET PO SCH (08:56)
[2018-01-04] MEDS: PANTOPRAZOLE 40 MG TABLET PO SCH (08:56)
[2018-01-04] MEDS: FERROUS SULFATE 325 MG TABLET PO SCH (08:57)
[2018-01-04] MEDS: ATORVASTATIN 10 MG TABLET PO SCH (08:57)
[2018-01-04] MEDS: GABAPENTIN 300 MG CAPSULE PO SCH (08:57)
[2018-01-04] MEDS: ASPIRIN EC 325 MG TABLET PO SCH (08:57)
[2018-01-04] MEDS: DOCUSATE SODIUM 100 MG CAPSULE PO SCH (08:57)
== END 2018-01-04 11:02 | disposition home health service (06) | DRG 166 ==
LOC: N.TELEN 12-29 10:10 → N.CVR 12-30 10:37 → N.TELES 12-31 09:50

== ENCOUNTER 2018-01-14 02:52 | Observation (INO) ==
[2018-01-14] MEDS ORDERED: ONDANSETRON 4 MG/2 ML VIAL IV STA (03:40)
[2018-01-14] MEDS ORDERED: MORPHINE 2 MG/1 ML SYRINGE IV STA (03:40)
[2018-01-14] MEDS ORDERED: NITROGLYCERIN 2% OINT 1 INCH/GM PACK TOP STA (03:40)
[2018-01-14] MEDS ORDERED: ASPIRIN 325 MG TABLET PO STA (03:40)
[2018-01-14] MEDS ORDERED: ALUM/MAG/SIMETH/LIDO VISC 1:1 30 ML BOTTLE PO STA (03:40)
[2018-01-14] MEDS ORDERED: ALUM/MAG/SIMETH/LIDO VISC 1:1 30 ML BOTTLE PO ONE (03:52)
[2018-01-14] MEDS ORDERED: NITROGLYCERIN 2% OINT 1 INCH/GM PACK TOP ONE (03:52)
[2018-01-14] MEDS ORDERED: ONDANSETRON 4 MG/2 ML VIAL ONE (03:52)
[2018-01-14 04:20] LABS: Basophils % 0.6 % (0.0-0.8); Eosinophils # 0.2 10*3/uL (0.0-0.87); Eosinophils % 2.7 % (0.00-10.9); Hematocrit 34.5 VOL% (42.0-52.0); Hemoglobin 11.4 GM/DL (14.0-18.0); Immature Granulocytes % 0.3 %; Immature Granulocytes Absolute 0.02 #; Lymphocytes # 1.2 10*3/uL (1.4-4.0); Lymphocytes % 17.4 % (21.2-54.2); Mean Corpuscular Hemoglobin 28 PG (27-34); Mean Corpuscular Volume 83.1 FL (87-102); Mean Platelet Volume 9.8 FL (9.6-12.0); Monocytes # 0.4 10*3/uL (0.11-0.8); Neutrophils # 5.2 10*3/uL (1.4-7.4); Platelet Count 413 T/CUMM (130-400); Red Blood Count 4.15 MC/CUMM (3.8-5.5); Red Cell Distribution Width 14.6 % (9.3-17.3); White Blood Count 7.1 T/CUMM (4-12)
[2018-01-14 04:27] LABS: INR 1.1; PT Patient Result 11.4 SECS
[2018-01-14 04:38] LABS: Alanine Aminotransferase 23 U/L (16-61); Albumin 3.3 G/DL (3.4-5.0); Alkaline Phosphatase 85 U/L (45-117); Aspartate Amino Transferase 19 U/L (0-37); Bilirubin,Total < 0.39 MG/DL (0.2-1.0); Blood Urea Nitrogen 15 MG/DL (7-18); Calcium 9.1 MG/DL (8.5-10.1); Glucose 131 MG/DL (74-106); Osmolality,Calculated 279.5 MOS/KG (273-304); Potassium 4.4 MMOL/L (3.5-5.1); Sodium 139 MMOL/L (136-145); Total Protein 7.9 G/DL (6.4-8.3)
[2018-01-14] MEDS ORDERED: GLUCAGON 1 MG VIAL IM PRN (05:45)
[2018-01-14] MEDS ORDERED: DEXTROSE 50% 25 GM/50 ML VIAL IV PRN (05:45)
[2018-01-14] MEDS ORDERED: oxyCODONE/ACETAMINOPHEN 5-325 MG TABLET PO PRN (05:46)
[2018-01-14] MEDS: LEVOTHYROXINE 50 MCG TABLET PO SCH (06:49)
[2018-01-14] MEDS ORDERED: MORPHINE 2 MG/1 ML SYRINGE IV PRN (08:07)
[2018-01-14] MEDS ORDERED: GABAPENTIN 300 MG CAPSULE PO SCH (09:00)
[2018-01-14] MEDS ORDERED: GABAPENTIN 100 MG CAPSULE ONE (10:19)
[2018-01-14] MEDS ORDERED: GABAPENTIN 300 MG CAPSULE ONE (10:19)
[2018-01-14] MEDS ORDERED: ASPIRIN 325 MG TABLET ONE (10:19)
[2018-01-14] MEDS: METOPROLOL TARTRATE 25 MG TABLET PO SCH ×2 (10:27→20:58)
[2018-01-14] MEDS: ASPIRIN EC 325 MG TABLET PO SCH (10:27)
[2018-01-14] MEDS ORDERED: NITROGLYCERIN SL 0.4 MG TABLET SL PRN ×2 (12:07→14:30)
[2018-01-14] MEDS: DICLOFENAC 1% GEL 100 GM TUBE TOP SCH ×3 (12:30→21:03)
[2018-01-14] MEDS: RANOLAZINE 500 MG TABLET PO SCH ×2 (12:31→20:58)
[2018-01-14] MEDS: NAPROXEN 250 MG TABLET PO SCH ×2 (12:31→20:57)
[2018-01-14] MEDS: ATORVASTATIN 20 MG TABLET PO SCH (12:31)
[2018-01-14] MEDS: GABAPENTIN 400 MG CAPSULE PO SCH ×3 (12:31→20:58)
[2018-01-14 12:35] LABS: Risk Ratio 6.03; VLDL CHOLESTEROL 27.6 MG/DL
[2018-01-14] MEDS: INSULIN LISPRO 100 UNIT/ML SUBCUT SCH ×4 (13:20→21:00)
[2018-01-14] MEDS: SERTRALINE 100 MG TABLET PO SCH (20:58)
[2018-01-14] MEDS ORDERED: QUEtiapine 100 MG TABLET PO SCH (21:00)
[2018-01-15] MEDS: LEVOTHYROXINE 50 MCG TABLET PO SCH (06:11)
[2018-01-15 07:21] LABS: Basophils % 0.4 % (0.0-0.8); Eosinophils # 0.3 10*3/uL (0.0-0.87); Eosinophils % 5.5 % (0.00-10.9); Hematocrit 31.2 VOL% (42.0-52.0); Hemoglobin 10.4 GM/DL (14.0-18.0); Immature Granulocytes % 0.4 %; Immature Granulocytes Absolute 0.02 #; Lymphocytes # 1.3 10*3/uL (1.4-4.0); Lymphocytes % 26.6 % (21.2-54.2); Mean Corpuscular HGB Conc 33.3 GM/DL (32-36); Mean Corpuscular Hemoglobin 27 PG (27-34); Mean Corpuscular Volume 82.3 FL (87-102); Mean Platelet Volume 9.2 FL (9.6-12.0); Monocytes # 0.4 10*3/uL (0.11-0.8); Monocytes % 7.8 % (1.7-12.7); Neutrophils # 2.8 10*3/uL (1.4-7.4); Neutrophils % 59.3 % (38.7-73.9); Platelet Count 361 T/CUMM (130-400); Red Blood Count 3.79 MC/CUMM (3.8-5.5); Red Cell Distribution Width 14.7 % (9.3-17.3); White Blood Count 4.7 T/CUMM (4-12)
[2018-01-15] MEDS: INSULIN LISPRO 100 UNIT/ML SUBCUT SCH ×2 (07:30→11:28)
[2018-01-15 07:47] LABS: Calcium 8.5 MG/DL (8.5-10.1); Osmolality,Calculated 279.5 MOS/KG (273-304); Potassium 4.2 MMOL/L (3.5-5.1)
[2018-01-15] MEDS ORDERED: DONEPEZIL 10 MG TABLET PO SCH (09:00)
[2018-01-15] MEDS: SERTRALINE 100 MG TABLET PO SCH (09:45)
[2018-01-15] MEDS: ASPIRIN EC 325 MG TABLET PO SCH (09:45)
[2018-01-15] MEDS: GABAPENTIN 400 MG CAPSULE PO SCH (09:45)
[2018-01-15] MEDS: NAPROXEN 250 MG TABLET PO SCH (09:45)
[2018-01-15] MEDS: METOPROLOL TARTRATE 25 MG TABLET PO SCH (09:47)
[2018-01-15] MEDS: ATORVASTATIN 20 MG TABLET PO SCH (09:47)
[2018-01-15] MEDS: RANOLAZINE 500 MG TABLET PO SCH (09:47)
[2018-01-15] MEDS: DICLOFENAC 1% GEL 100 GM TUBE TOP SCH (09:50)
[2018-01-15 11:33] VITALS: BP 109/69
[2018-01-16] MEDS ORDERED: QUEtiapine 25 MG TABLET PO SCH (09:00)
== END 2018-01-15 13:38 | disposition home or self-care (01) ==
LOC: EDBD → EDUNIT# → SUATTDRO → N.ED 02:52 → N.EDINP 02:52 → N.2E 14:50
PROVIDERS: ADMIT Internal Medicine Geriatric Medicine; ATTEND Internal Medicine Geriatric Medicine